=== PATIENT | female | born 1990 | race African-American/Black ===

== ENCOUNTER 2019-12-20 07:09 | Emergency (ER) | payer OTHER ==
[~2019-12-20] VITALS: Ht 165.1 cm; Wt 86.0 kg
--- NOTE | 2019-12-20 07:34 | PHYS DOC ---
Past Medical History Past Medical History: Migraines Adult General Chief Complaint Chief Complaint: HEADACHE HPI HPI Patient is a 29 year old female with history of migraine headache who presents with complaining of headache. Patient complaining of constant throbbing pain in forehead with radiation to occipital area for the last 3 days without photophobia, nausea and vomiting, focal neuro deficit, fever and chills, neck pain. Patient states the pain is like her usual migraine headache but did not get better with Tylenol and ibuprofen like her usual treatment. Patient rated her pain 8/10 and states she has appointment with her neurologist tomorrow. Review of Systems Review of Systems Constitutional: Denies fever or chills [] Eyes: Denies change in visual acuity, redness, or eye pain [] HENT: Denies nasal congestion or sore throat [] Respiratory: Denies cough or shortness of breath [] Cardiovascular: No additional information not addressed in HPI [] GI: Denies abdominal pain, nausea, vomiting, bloody stools or diarrhea [] : Denies dysuria or hematuria [] Musculoskeletal: Denies back pain or joint pain [] Integument: Denies rash or skin lesions [] Neurologic: Denies focal weakness or sensory changes, reports headache [] Endocrine: Denies polyuria or polydipsia [] All other systems were reviewed and found to be within normal limits, except as documented in this note. Current Medications Current Medications Current Medications Medications (Trade) Dose Ordered Sig/Nadia Start Time Stop Time Status Last Admin Dose Admin Acetaminophen/ Hydrocodone Bitart (Lortab 5/325) 1 tab 1X ONCE 12/20/19 07:45 12/20/19 07:46 DC 12/20/19 07:54 1 TAB Ondansetron HCl (Zofran Odt) 4 mg 1X ONCE 12/20/19 07:45 12/20/19 07:46 DC 12/20/19 07:38 4 MG Allergies Allergies Allergies Coded Allergies Type Severity Reaction Last Updated Verified No Known Drug Allergies 12/20/19 No Physical Exam Physical Exam Constitutional: Well developed, well nourished, mild distress, non-toxic appearance. [] HENT: Normocephalic, atraumatic. Eyes: PERRLA, EOMI, conjunctiva normal, no discharge. [] Neck: Normal range of motion, no tenderness, supple, no stridor, no meningeal sign. [] Cardiovascular:Heart rate regular rhythm, no murmur [] Lungs & Thorax: Bilateral breath sounds clear to auscultation [] Abdomen: Bowel sounds normal, soft, no tenderness, no masses, no pulsatile masses. [] Skin: Warm, dry, no erythema, no rash. [] Back: No tenderness, no CVA tenderness. [] Extremities: No tenderness, no cyanosis, no clubbing, ROM intact, no edema. [] Neurologic: Alert and oriented X 3, no focal deficits noted. [] Psychologic: Affect normal, judgement normal, mood normal. [] Current Patient Data Vital Signs Vital Signs Date Time Temp Pulse Resp B/P (MAP) Pulse Ox O2 Delivery O2 Flow Rate FiO2 12/20/19 07:54 16 98 Room Air 12/20/19 07:19 98.2 67 130/74 (92) 98.2 EKG EKG [] Radiology/Procedures Radiology/Procedures [] Course & Med Decision Making Course & Med Decision Making Evaluation of patient inertial 29-year-old female patient with history of migraine headache presented with headache for the last 3 days without vomiting and focal neuro deficit. Patient treated with [place] and Zofran with improvement of pain from 8 to 3. Patient has appointment with her neurologist tomorrow and was advised to continue with home medication and follow-up with her neurologist. I've spoken with the patient and/or caregivers. I've explained the patient's condition, diagnosis and treatment plan based on information available to me at this time. I've answered the patient's and/or caregivers questions and addressed any concerns. The patient and/or caregivers have a good understanding the patient's diagnosis, condition and treatment plan as can be expected at this point. Vital signs have been stabilized. The patient's condition is stable for discharge from the emergency department. The patient will pursue further outpatient evaluation with her primary care provider or other designated consulting physician as outlined in the discharge instructions. Patient and/or caregivers are agreeable to this plan of care and follow-up instructions have been explained in detail. The patient and/or caregivers have received these instructions in written format and expressed understanding of these discharge instructions. The patient and her caregivers are aware that if any significant change in condition or worsening of symptoms should prompt him to immediately return to this of the closest emergency department. If an emergent department is not readily available I would encourage him to call 911. Katherin Disclaimer Dragon Disclaimer This electronic medical record was generated, in whole or in part, using a voice recognition dictation system. Departure Departure Impression: Primary Impression: Migraine headache without aura Disposition: HOME, SELF-CARE (At 0842) Condition: IMPROVED Referrals: DONA AARON MD (PCP) Patient Instructions: Migraine Headache Additional Instructions: Drink plenty of liquids Follow-up with your neurologist as scheduled for tomorrow Return to ER if not getting better Scripts Butalbital/Aspirin/Caffeine (FIORINAL 50-325-40 MG CAPSULE) 1 Each Capsule 1 EACH PO QID PRN for PAIN, #20 CAP Prov: LBIRA JUNG MD 12/20/19 Problem Qualifiers Primary Impression: Migraine headache without aura Status migrainosus presence: without status migrainosus Intractability: not intractable Qualified Codes: G43.009 - Migraine without aura, not intractable, without status migrainosus LIBRA JUNG MD Dec 20, 2019 07:34
[2019-12-20] MEDS ORDERED: ONDANSETRON ODT 4 MG TAB.RAPDIS. ONE (07:36)
[2019-12-20] MEDS ORDERED: HYDROcodone/APAP 5/325MG 1 TAB TABLET ONE (07:37)
[2019-12-20] MEDS ORDERED: HYDROcodone/APAP 5/325MG 1 TAB TABLET PO ONE (07:45)
[2019-12-20] MEDS ORDERED: ONDANSETRON ODT 4 MG TAB.RAPDIS. PO ONE (07:45)
[2019-12-20 08:00] VITALS: BP 143/84
[2019-12-20] MEDS ORDERED: BUTA1CAP31 PO (08:44)
== END 2019-12-20 08:54 | disposition home or self-care (01) ==
LOC: ER 07:09
DX: G43.009 Migraine without aura, not intractable, without status migrainosus (principal)
CPT/HCPCS: 99283; Q0162